=== PATIENT | female | born 1970 | race Caucasian/White ===

== ENCOUNTER → 2019-12-03 15:12 | Outpatient (CLI) | payer OTHER, SELFPAY ==
--- NOTE | ~2019-12-03 | MM_ITS ---
EXAMINATION: MM screening [facility] w stalin HISTORY: Screening mammogram TECHNIQUE: Craniocaudal and mediolateral oblique 3-D tomosynthesis images were obtained and synthetic 2-D images were generated. CAD analysis was submitted and interpreted. COMPARISON: 10/19/2018, 10/10/2017, 10/16/2016 bilateral digital screening mammogram examinations BREAST PARENCHYMAL COMPOSITION: The breasts are almost entirely fatty. FINDINGS: Bilateral axillary tail circumscribed stable intramammary lymph nodes. There is no evidence of suspicious mass, calcification, or architectural distortion to suggest malignancy in either breas t. There has been no suspicious interval change. IMPRESSION: 1. No mammographic evidence of malignancy. 2. Recommend routine screening mammography in one year. BI-RADS Category 2: Benign finding(s). Reviewed, dictated and finalized at location A.
== END ==
PROVIDERS: Visit Provider Obstetrics & Gynecology
DX: Z12.31 Encounter for screening mammogram for malignant neoplasm of breast (principal)
CPT/HCPCS: 77063; 77067

== ENCOUNTER → 2020-11-16 07:09 | Outpatient (CLI) | payer OTHER, SELFPAY ==
--- NOTE | ~2020-11-16 | MM_ITS ---
EXAMINATION: MM screening [facility] [place] stalin HISTORY: Screening mammogram TECHNIQUE: Craniocaudal and mediolateral oblique 3-D tomosynthesis images were obtained and synthetic 2-D images were generated. CAD analysis was submitted and interpreted. COMPARISON: 12/03/2019, 10/19/2018, 10/10/2017 BREAST PARENCHYMAL COMPOSITION: The breasts are almost entirely fatty. FINDINGS: There is no evidence of suspicious mass, calcification, or architectural distortion to sugg est malignancy in either breast. There has been no suspicious interval change. IMPRESSION: 1. No mammographic evidence of malignancy. 2. Recommend routine screening mammography in one year. BI-RADS Category 1: Negative Reviewed, dictated and finalized at location A.
== END ==
PROVIDERS: Visit Provider Obstetrics & Gynecology Gynecology
DX: Z12.31 Encounter for screening mammogram for malignant neoplasm of breast (principal)
CPT/HCPCS: 77063; 77067

== ENCOUNTER → 2021-02-06 00:53 | Outpatient (CLI) | payer OTHER, SELFPAY ==
[2021-02-06 17:56] LABS: SARS-CoV-2 RNA PCR Negative
== END ==
PROVIDERS: Visit Provider Internal Medicine Gastroenterology
DX: Z01.812 Encounter for preprocedural laboratory examination (principal); Z20.822 Contact with and (suspected) exposure to COVID-19
CPT/HCPCS: C9803; U0003; U0005

== ENCOUNTER 2021-02-09 01:58 | Day surgery (SDC) | payer OTHER, SELFPAY ==
[2021-01-28 10:47] VITALS: BMI 34.0
--- NOTE | 2021-02-09 07:05 | P.PNAN_ITS ---
Anes - Initial Pre Proc Eval Procedure: Operation Date: 02/09/21 08:00 Proposed Procedures p Colonoscopy - Chad Pepper MD Date/Time: 02/09/21 07:05 Surgeon: Chad Pepper MD Pre Op Diagnosis: positive cologuard Patient Data Age: 50 Gender: F Height: 1.63 m Weight: 90 kg Allergies Allergy/AdvReac Type Severity Reaction Status Date / Time Sulfa (Sulfonamide Allergy Unknown Fever Verified 02/09/21 06:43 Antibiotics) LIQUOR Allergy Intermediate Hives Uncoded 02/09/21 06:43 Home Medications Medication Instructions Recorded Confirmed Type sodium,potassium,mag sulfates 17.5 See Rx Instructions PO .COMPLEX 01/15/21 02/09/21 Rx gram-3.13 gram-1.6 gram oral soln #354 ml alprazolam 0.5 mg PO PRN PRN 01/28/21 02/09/21 History cetirizine [Zyrtec] 10 mg PO HS 01/28/21 02/09/21 History cholecalciferol (vitamin D3) 2,000 unit PO DAILY 01/28/21 02/09/21 History [Vitamin D3] fenofibrate 160 mg PO HS 01/28/21 02/09/21 History levonorgestrel-ethinyl estrad 1 tablet PO DAILY 01/28/21 02/09/21 History [Altavera (28)] levothyroxine 25 mcg PO DAILY 01/28/21 02/09/21 History Patient hx anesthesia problems: none Family hx anesthesia problems: none [facility] Past Medical History Medical History (Updated 02/09/21 @ 07:07 by Moisés Alanis MD) Anxiety Hyperlipidemia Hypothyroidism Social History Social History Smoking status: Never smoker Alcohol intake: former Substance use: never Substance use type: former substance user Living arrangements: with family Spiritual care concerns: No Anes - Eval Final PreProcedure Day of Procedure 02/09/21 07:05 Patient weight: obese Heart: regular rate and rhythm Lungs: clear to auscultation and normal air movement Airway: Mallampati scale class II Neurological: alert and oriented Last oral intake: >/= 8 hours ASA classification: II Emergent: no Anesthetic plan: proceed Anesthesia type and monitoring: general GIVS Informed Consent: The patient's anesthetic plan and its attendant risks and benefits were discussed with the patient/family/POA. Questions were solicited and answers provided to the satisfaction of the patient/family/POA.
[2021-02-09 07:10] VITALS: BP 137/92; PULSE 119; RESP 20; TEMP 36.6; O2SAT 99; BMI 33.3
[2021-02-09] MEDS: LACTATED RINGERS 1,000 ML 150 ML IV CONT (07:24)
--- NOTE | 2021-02-09 07:51 | P.CONGI_ITS ---
Assessment and Plan Assessment and plan (1) Positive colorectal cancer screening using Cologuard test: Code(s): R19.5 - Other fecal abnormalities Status: Acute Assessment and Plan: Recent screening cologuard test was found to be positive. For this reason colonoscopy will be performed at this time. (2) Family history of colonic polyps: Code(s): Z83.71 - Family history of colonic polyps Status: Acute Assessment and Plan: Patient reports that both mother and father had colon polyps. Patient should consider screening colonoscopy at 5 year intervals in the future. GI Consult Note Consult date/time: 02/09/21 07:51 HPI: Gi Andino is a 50 year old female Presents for screening Colonoscopy. Patient states that her current weight appetite bowel movements are normal. She underwent screening cologuard test at the request of her sfdc developer. It was found to be positive and for this reason she is referred for screening colonoscopy. Patient reports that both her mother and father have had colon polyps. Patient herself has good bowel habits she denies any blood in her stools. She denies any abdominal pain. She has had no bleeding. Review of Systems Review of Systems: All systems reviewed & are unremarkable except as noted in HPI and below PMFSH Past Medical History Medical History Anxiety Hyperlipidemia Hypothyroidism Social History Social History Smoking status: Never smoker Alcohol intake: former Substance use: never Substance use type: former substance user Living arrangements: with family Spiritual care concerns: No Meds Home Medications and Allergies Home Medications Medication Instructions Recorded Confirmed Type sodium,potassium,mag sulfates 17.5 See Rx Instructions PO .COMPLEX 01/15/21 02/09/21 Rx gram-3.13 gram-1.6 gram oral soln #354 ml alprazolam 0.5 mg PO PRN PRN 01/28/21 02/09/21 History cetirizine [Zyrtec] 10 mg PO HS 01/28/21 02/09/21 History cholecalciferol (vitamin D3) 2,000 unit PO DAILY 01/28/21 02/09/21 History [Vitamin D3] fenofibrate 160 mg PO HS 01/28/21 02/09/21 History levonorgestrel-ethinyl estrad 1 tablet PO DAILY 01/28/21 02/09/21 History [Altavera (28)] levothyroxine 25 mcg PO DAILY 01/28/21 02/09/21 History Allergies Allergy/AdvReac Type Severity Reaction Status Date / Time Sulfa (Sulfonamide Allergy Unknown Fever Verified 02/09/21 06:43 Antibiotics) LIQUOR Allergy Intermediate Hives Uncoded 02/09/21 06:43 Vital Signs Vital Signs - 24 hr 02/09/21 07:10 Temperature 98 F Pulse Rate 119 H Respiratory Rate 20 Blood Pressure 137/92 H Pulse Oximetry 99 Exam Narrative: Exam Narrative: Physical exam reveals patient be alert. Vital signs stable. HEENT exam is unremarkable. Patient is anicteric. Lungs are clear to auscultation and percussion. Heart is without murmur or extra sounds. Abdominal exam bowel sounds are present soft nontender with no organomegaly. Digital external rectal exam is normal.
[2021-02-09 08:18] VITALS: BP 110/75; PULSE 100; RESP 22; O2SAT 100
[2021-02-09 08:28] VITALS: BP 117/57; PULSE 86; RESP 20; O2SAT 100
[2021-02-09 08:38] VITALS: BP 126/52; PULSE 82; RESP 22; O2SAT 99
== END 2021-02-09 08:50 | disposition home or self-care (01) ==
PROVIDERS: PCP Physician Assistant; Visit Provider Internal Medicine Gastroenterology
PROC: 0DJD8ZZ Inspection of Lower Intestinal Tract, Via Natural or Artificial Opening Endoscopic (ICD-10-PCS; CPT 45378; principal; 2021-02-09 08:00)
DX: R19.5 Other fecal abnormalities (principal); D12.4 Benign neoplasm of descending colon; D12.8 Benign neoplasm of rectum; K64.8 Other hemorrhoids; K57.30 Diverticulosis of large intestine without perforation or abscess without bleeding; Z83.71 Family history of colonic polyps; E78.5 Hyperlipidemia, unspecified; E03.9 Hypothyroidism, unspecified; F41.9 Anxiety disorder, unspecified; E66.9 Obesity, unspecified; Z68.33 Body mass index [BMI] 33.0-33.9, adult
CPT/HCPCS: 45385; 88305; C9803; J2704; J7120; U0003; U0005

== ENCOUNTER → 2022-01-28 11:09 | Outpatient (CLI) | payer OTHER, SELFPAY ==
--- NOTE | ~2022-01-28 | MM_ITS ---
EXAMINATION: MM screening [facility] w stalin HISTORY: Screening mammogram TECHNIQUE: Craniocaudal and mediolateral oblique 3-D tomosynthesis images were obtained and synthetic 2-D images were generated. CAD analysis was submitted and interpreted. COMPARISON: 11/16/2020, 12/03/2019, 10/19/2018 bilateral screening mammogram examinations BREAST PARENCHYMAL COMPOSITION: The breasts are almost entirely fatty. FINDINGS: Stable bilateral circumscribed axillary tail lymph nodes. There is no evidence of suspiciou s mass, calcification, or architectural distortion to suggest malignancy in either breast. There has been no suspicious interval change. IMPRESSION: 1. No mammographic evidence of malignancy. 2. Recommend routine screening mammography in one year. BI-RADS Category 1: Negative Reviewed, dictated and finalized at location A.
== END ==
PROVIDERS: PCP Physician Assistant; Visit Provider Nurse Practitioner
DX: Z12.31 Encounter for screening mammogram for malignant neoplasm of breast (principal)
CPT/HCPCS: 77063; 77067

== ENCOUNTER → 2023-05-09 09:53 | Outpatient (CLI) | payer OTHER, SELFPAY ==
--- NOTE | ~2023-05-09 | MM_ITS ---
EXAMINATION: MM screening [facility] w stalin HISTORY: Screening mammogram TECHNIQUE: Craniocaudal and mediolateral oblique 3-D tomosynthesis images were obtained and synthetic 2-D images were generated. CAD analysis was submitted and interpreted. COMPARISON: 02/14/2022, 11/16/2020, 12/03/2019 bilateral screening mammogram examinations BREAST PARENCHYMAL COMPOSITION: The breasts are almost entirely fatty. FINDINGS: Bilateral stable benign-appearing axillary tail lymph nodes. There is no evidence of suspic ious mass, calcification, or architectural distortion to suggest malignancy in either breast. There h as been no suspicious interval change. IMPRESSION: 1. No mammographic evidence of malignancy. 2. Recommend routine screening mammography in one year. BI-RADS Category 1: Negative Reviewed, dictated and finalized at location A.
== END ==
PROVIDERS: PCP Nurse Practitioner; Visit Provider Nurse Practitioner
DX: Z12.31 Encounter for screening mammogram for malignant neoplasm of breast (principal)
CPT/HCPCS: 77063; 77067

== ENCOUNTER → 2023-09-27 08:10 | Outpatient (CLI) | payer OTHER, SELFPAY ==
--- NOTE | ~2023-09-27 | US_ITS ---
US right upper quadrant INDICATION: Abdomen pain. Nausea. Increased heart rate. PROCEDURE: Realtime right upper abdominal ultrasound. COMPARISON: No prior studies for comparison. FINDINGS: The pancreas is normal without focal mass or pancreatic ductal dilation. Liver echotexture is increased, consistent with fatty infiltration. There is normal directional flow in the portal ve in. The gallbladder is normal without stones, gallbladder wall thickening or pericholecystic fluid. Comm on bile duct measures 3 mm. No sonographic Connell's sign. Right renal echotexture is unremarkable. R ight kidney measures 9.7 cm. IMPRESSION: 1: Fatty infiltration of the liver. Reviewed, dictated and finalized at location A. 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
== END ==
PROVIDERS: PCP Physician Assistant; Visit Provider Physician Assistant
DX: R10.9 Unspecified abdominal pain (principal); K76.0 Fatty (change of) liver, not elsewhere classified
CPT/HCPCS: 76705

== ENCOUNTER 2024-07-31 09:24 | Outpatient (CLI) | payer OTHER, SELFPAY ==
--- NOTE | ~2024-07-31 | MM_ITS ---
EXAMINATION: MM screening [facility] BI w stalin HISTORY: Screening TECHNIQUE: Craniocaudal and mediolateral oblique 3-D tomosynthesis images were obtained and synthetic 2-D images were generated. CAD analysis was submitted and interpreted. COMPARISON: Comparison to multiple prior studies sequentially, with oldest reviewed study dated 10/10. BREAST PARENCHYMAL COMPOSITION: Not Dense: The breasts are almost entirely fatty... FINDINGS: There is no evidence of suspicious mass, calcification, or architectural distortion to sugg est malignancy in either breast. There has been no suspicious interval change. IMPRESSION: 1. No mammographic evidence of malignancy. 2. Recommend routine screening mammography in one year. BI-RADS Category 1: Negative Reviewed, dictated and finalized at location B. ERCIAL REAL ESTATE APPRAISER
== END 2024-07-31 09:25 | disposition home or self-care (01) ==
PROVIDERS: PCP Family Medicine; Visit Provider Nurse Practitioner
DX: Z12.31 Encounter for screening mammogram for malignant neoplasm of breast (principal)
CPT/HCPCS: 77063; 77067

== ENCOUNTER 2025-08-05 07:45 | Outpatient (CLI) | payer OTHER, SELFPAY ==
--- NOTE | ~2025-08-05 | MM_ITS ---
EXAMINATION: MM screening [facility] w stalin HISTORY: Screening. TECHNIQUE: Craniocaudal and mediolateral oblique 3-D tomosynthesis images were obtained and synthetic 2-D images were generated. CAD analysis was submitted and interpreted. COMPARISON: 2023, 2022, and 2021. BREAST PARENCHYMAL COMPOSITION: Not Dense: The breasts are almost entirely fatty FINDINGS: No suspicious masses are seen. There are no suspicious calcifications. No unexplained architectural distortion is seen. There are no skin or nipple abnormalities identified. There is no adenopathy seen on the images submitted. IMPRESSION: No mammographic evidence to suggest malignancy is seen. The patient may return to screening mammography as per ACR guidelines. BI-RADS 1 - Negative. Reviewed, dictated and finalized at location C. GENCY ROOM PHYSICIAN ASSISTANT
== END 2025-08-05 07:46 | disposition home or self-care (01) ==
LOC: ANHFOHIMG 07:46
PROVIDERS: PCP Family Medicine; Visit Provider Nurse Practitioner
DX: Z12.31 Encounter for screening mammogram for malignant neoplasm of breast (principal)
CPT/HCPCS: 77063; 77067